=== PATIENT | female | born 1965 | race Asian ===

== ENCOUNTER 2017-02-09 17:34 | Emergency (ER) | payer OTHER ==
--- NOTE | 2017-02-09 19:01 | XRAY Preliminary Report ---
Exam: XR HAND 3 VIEW RT IMPRESSION: Normal hand radiography. [facility] SITE ID: [id number]
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
[2017-02-09] MEDS ORDERED: IBUPROFEN 600 MG TABLET PO STA (19:14)
[2017-02-09] MEDS ORDERED: ACETAMINOPHEN 325 MG TABLET PO STA (19:15)
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
--- NOTE | 2017-02-09 20:14 | XRAY Preliminary Report ---
Exam: XR SHOULDER 3 VIEW RT IMPRESSION: No fracture or subluxation. [facility] SITE ID: [id number]
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
[2017-02-09 20:36] VITALS: BP 115/75
== END 2017-02-09 20:35 | disposition home or self-care (01) ==
LOC: ED 17:34
DX: S60.221A Contusion of right hand, initial encounter (principal); S40.011A Contusion of right shoulder, initial encounter; Y04.2XXA Assault by strike against or bumped into by another person, initial encounter; F17.200 Nicotine dependence, unspecified, uncomplicated
CPT/HCPCS: 73030; 73130; 99283; A9270

== ENCOUNTER 2020-12-05 16:29 | Outpatient (CLI) | payer BC, OTHER | END 2020-12-05 16:30 | disposition home or self-care (01) | LOC: COV 16:29 | PROVIDERS: ATTEND Family Medicine | DX: R05.9 Cough, unspecified (principal); R07.0 Pain in throat; R11.2 Nausea with vomiting, unspecified; Z20.822 Contact with and (suspected) exposure to COVID-19 ==

== ENCOUNTER 2022-01-16 16:00 | Outpatient (CLI) | payer BC ==
--- NOTE | 2022-01-17 15:04 | XRAY Report ---
PROCEDURE: Chest 2 View X-Ray INDICATIONS: POSITIVE QUANTIFERON GOLD TEST TECHNIQUE: 2 views of the chest were acquired. COMPARISON: None. FINDINGS: Surgical changes and devices: None. Lungs and pleura: No pleural effusions or pneumothorax. Lungs are clear. Mediastinum: Mediastinal contours are normal. Heart size is normal. Bones and chest wall: No suspicious bony abnormalities. Soft tissues appear unremarkable. IMPRESSION: No acute abnormality or plain radiographic evidence of pulmonary tuberculosis. Reviewed by: Woodrow Massey MD on 01/17/2022 3:02 PM PST Approved by: Woodrow Massey MD on 01/17/2022 3:02 PM PST Station ID: [id number]
== END 2022-01-16 16:01 | disposition home or self-care (01) ==
LOC: DI.N 16:00
PROVIDERS: ATTEND Nurse Practitioner
DX: R76.11 Nonspecific reaction to tuberculin skin test without active tuberculosis (principal)

== ENCOUNTER 2022-05-07 17:00 | Outpatient (CLI) | payer BC ==
[2022-05-07 21:00] LABS: CHOL/HDL RATIO 1.8 (<4.4); CHOLESTEROL 189 mg/dL; GLUCOSE 99 mg/dL (70-100); HDL CHOLESTEROL 105 mg/dL; TRIGLYCERIDES 33 mg/dL
== END 2022-05-07 17:01 | disposition home or self-care (01) ==
LOC: LAB.N 17:00
PROVIDERS: ATTEND Nurse Practitioner
DX: Z00.00 Encounter for general adult medical examination without abnormal findings (principal); Z51.81 Encounter for therapeutic drug level monitoring
CPT/HCPCS: 36415; 80061; 82947; 83721